=== PATIENT | male | born 1980 | race Caucasian/White ===

== ENCOUNTER 2022-07-11 17:10 | Emergency (ER) | payer OTHER ==
[~2022-07-11] VITALS: Ht 170.2 cm; Wt 65.8 kg
[2022-07-11 17:18] VITALS: BP 121/75
[2022-07-11] MEDS ORDERED: CYCLOBENZAPRINE 10 MG TABLET PO ONE (17:30)
[2022-07-11] MEDS ORDERED: KETOROLAC TROMETHAMINE INJ 60 MG/2 ML VIAL IM ONE (17:30)
[2022-07-11] MEDS ORDERED: CYCLOBENZAPRINE 10 MG TABLET ONE (17:34)
[2022-07-11] MEDS ORDERED: KETOROLAC TROMETHAMINE INJ 30 MG/ML VIAL ONE (17:34)
--- NOTE | 2022-07-11 17:42 | NUR ---
FLEXERIL PO AND TORADOL GIVEN IM RIGHT DELTOID INDICATED, [facility].
[2022-07-11] MEDS ORDERED: CYCL10TA9 PO (19:17)
[2022-07-11] MEDS ORDERED: NAPR500T6 PO (19:17)
--- NOTE | 2022-07-11 19:25 | NUR ---
Patient discharged to home in stable condition. Written and verbal after care instructions given. Patient verbalizes understanding of instruction. Pt ambulatory with a steady gait
== END 2022-07-11 19:30 | disposition home or self-care (01) ==
LOC: ER 17:12
DX: S39.012A Strain of muscle, fascia and tendon of lower back, initial encounter (principal); S16.1XXA Strain of muscle, fascia and tendon at neck level, initial encounter; Z79.899 Other long term (current) drug therapy; V89.2XXA Person injured in unspecified motor-vehicle accident, traffic, initial encounter; W22.19XA Striking against or struck by other automobile airbag, initial encounter; Y93.89 Activity, other specified; Y92.89 Other specified places as the place of occurrence of the external cause; Y99.8 Other external cause status
CPT/HCPCS: 99284; 96372; 72050; 72110; J1885